=== PATIENT | female | born 1990 | race Caucasian/White ===

== ENCOUNTER 2016-07-05 19:57 | Emergency (ER) | payer MEDICAID ==
[2016-07-05] MEDS ORDERED: ONDANSETRON 4 MG VIAL ONE (20:55)
[2016-07-05] MEDS ORDERED: SODIUM CHLORIDE 0.9% 1,000 ML ONE (20:55)
[2016-07-05] MEDS ORDERED: KETOROLAC 30 MG/ML VIAL ONE (20:55)
[2016-07-05] MEDS ORDERED: MORPHINE 4 MG/ML SYR ONE (21:57)
[2016-07-05] MEDS ORDERED: CEFTRIAXONE 1 GM VIAL ONE (21:57)
[2016-07-05] MEDS ORDERED: SODIUM CHLORIDE 0.9% 100 ML IV ONE (21:58)
== END 2016-07-05 22:49 | disposition home or self-care (01) ==
LOC: ER 19:57
DX: N20.0 Calculus of kidney (principal); N39.0 Urinary tract infection, site not specified; Z87.442 Personal history of urinary calculi
CPT/HCPCS: 36415; 80053; 81001; 83690; 84703; 85025; 87088; 96361; 96365; 96375